=== PATIENT | female | born 1945 | race Hispanic/Latino ===

== ENCOUNTER 2018-04-20 19:40 | Inpatient (IN) | payer OTHER ==
[2018-04-20 21:08] LABS: Urine Blood TRACE (NEG); Urine Glucose NEGATIVE (NEG); Urine Protein NEGATIVE (NEG)
[2018-04-20 21:50] LABS: Absolute Lymphocytes (CBC) 2.2 K/uL (0.7-4.9); Absolute Monocytes 0.6 K/uL (0.1-1.3); Basophils % 0.5 % (0-1.3); Eosinophils % 0.4 % (0-4.4); Hematocrit 38.8 % (36.0-45.0); Lymphocytes % 24.4 % (15.3-44.8); MCH 29.3 pg (27.0-35.0); MCV 85.6 fL (80-100); MPV 9.8 fL (7.6-11.3); RBC Red Blood Cell Count 4.53 M/uL (3.86-4.86)
[2018-04-20 22:06] LABS: Albumin 3.9 g/dL (3.4-5.0); Bilirubin Direct 0.2 mg/dL (0-0.2); Bilirubin Total 0.6 mg/dL (0.2-1.0); Potassium 3.9 mmol/L (3.5-5.1); Protein, Total 8.2 g/dL (6.4-8.2)
--- NOTE | 2018-04-21 00:25 | ER ---
Nurse's Notes [facility] Name: Sara Goodwin Age: 72 yrs Sex: Female : 1945 Arrival Date: 04/20/2018 Time: 19:42 Bed 13 Private MD: Priti Adams Diagnosis: Hydronephrosis with renal and ureteral calculous obstruction Presentation: 04/20 19:47 Presenting complaint: Patient states: LLQ abdominal pain that radiates to back with aj nausea started today. Denies burning with urination. Transition of care: patient was not received from another setting of care. Onset of symptoms was April 20, 2018. Risk Assessment: Do you want to hurt yourself or someone else? Patient reports no desire to harm self or others. Initial Sepsis Screen: Does the patient meet any 2 criteria? No. Patient's initial sepsis screen is negative. Does the patient have a suspected source of infection? No. Patient's initial sepsis screen is negative. Care prior to arrival: None. 19:47 Method Of Arrival: Ambulatory 19:47 Acuity: PIYUSH 3 aj Triage Assessment: 19:48 General: Appears in no apparent distress. comfortable, Behavior is calm, cooperative, aj appropriate for age. Pain: Complains of pain in anterior aspect of left lateral abdomen and left lower quadrant. Neuro: Level of Consciousness is awake, alert, obeys commands, Oriented to person, place, time, situation, Appropriate for age. Respiratory: Airway is patent Respiratory effort is even, unlabored, Respiratory pattern is regular, symmetrical. GI: Abdomen is non-distended, obese, Reports lower abdominal pain, nausea. Derm: Skin is intact, is healthy with good turgor, Skin is pink, warm \T\ dry. normal. Historical: - Allergies: 19:48 No Known Allergies; aj - PMHx: 19:48 Hypothyroidism; Hypertension; Cancer, Breast; aj - PSHx: 19:48 Mastectomy, Right; ; aj - Immunization history:: Adult Immunizations up to date. - Social history:: Smoking status: Patient/guardian denies using tobacco. - Ebola Screening: : Patient negative for fever greater than or equal to 101.5 degrees Fahrenheit, and additional compatible Ebola Virus Disease symptoms Patient denies exposure to infectious person Patient denies travel to an Ebola-affected area in the 21 days before illness onset No symptoms or risks identified at this time. Screenin:30 Abuse screen: Denies threats or abuse. Denies injuries from another. Nutritional cc3 screening: No deficits noted. Tuberculosis screening: No symptoms or risk factors identified. Fall Risk Ambulatory Aid- None/Bed Rest/Nurse Assist (0 pts). Gait- Normal/Bed Rest/Wheelchair (0 pts) Mental Status- Oriented to own ability (0 pts). Assessment: 20:30 General: see triage assessment. cc3 21:20 Reassessment: Patient appears in no apparent distress at this time. Patient and/or cc3 family updated on plan of care and expected duration. Pain level reassessed. Patient is alert, oriented x 3, equal unlabored respirations, skin warm/dry/pink. 22:45 Reassessment: Patient appears in no apparent distress at this time. Patient and/or cc3 family updated on plan of care and expected duration. Pain level reassessed. Patient is alert, oriented x 3, equal unlabored respirations, skin warm/dry/pink. Called CT scan department at extension [phone] and informed them that patient has a new IV cannula already and ready for the procedure. 23:43 Reassessment: Patient appears in no apparent distress at this time. Patient and/or cc3 family updated on plan of care and expected duration. Pain level reassessed. Patient is alert, oriented x 3, equal unlabored respirations, skin warm/dry/pink. Patient came back from CT scan department, waiting for the result. 04/21 00:25 Reassessment: Patient appears in no apparent distress at this time. Patient and/or cc3 family updated on plan of care and expected duration. Pain level reassessed. Patient is alert, oriented x 3, equal unlabored respirations, skin warm/dry/pink. Patient for admission, waiting for admission orders. 01:22 Reassessment: Patient appears in no apparent distress at this time. Patient and/or cc3 family updated on plan of care and expected duration. Pain level reassessed. Patient is alert, oriented x 3, equal unlabored respirations, skin warm/dry/pink. 01:46 Reassessment: Room available in [facility], called extension [phone] for report but as per Chana ariza the nurse who will receive will call me back. 01:50 Reassessment: Report handed over to RN Benedict Sears for continuity of care. cc3 02:00 Reassessment: Patient appears in no apparent distress at this time. Patient and/or cc3 family updated on plan of care and expected duration. Pain level reassessed. Patient is alert, oriented x 3, equal unlabored respirations, skin warm/dry/pink. Patient left ER for admission vitally stable by wheelchair escorted by technical assistance consultant Taoism. Vital Signs: 04/20 19:48 BP 159 / 75; Pulse 75; Resp 19; Temp 98.9; Pulse Ox 98% on R/A; Weight 73.94 kg; Height aj 5 ft. 0 in. (152.40 cm); 20:32 BP 146 / 89; Pulse 67; Resp 18 S; Pulse Ox 98% on R/A; cc3 21:15 BP 163 / 84; Pulse 72; Resp 18 S; Pulse Ox 98% on R/A; cc3 22:11 BP 161 / 78; Pulse 68; Resp 20 S; Pulse Ox 98% on R/A; cc3 23:04 BP 179 / 84; Pulse 68; Resp 19 S; Pulse Ox 98% on R/A; cc3 23:44 BP 156 / 89; Pulse 73; Resp 20 S; Pulse Ox 97% on R/A; cc3 04/21 00:23 BP 152 / 82; Pulse 71; Resp 18 S; Pulse Ox 98% on R/A; cc3 01:43 BP 155 / 75; Pulse 64; Resp 17 S; Pulse Ox 97% on R/A; cc3 04/20 19:48 Body Mass Index 31.83 (73.94 kg, 152.40 cm) aj ED Course: 04/20 19:42 Patient arrived in ED. am2 19:43 Priti Adams is Private Physician. am2 19:47 Triage completed. aj 19:48 Arm band placed on left wrist. Patient placed in waiting room, Patient notified of wait aj time. 20:28 Sujata Mcclelland is Primary Nurse. cc3 20:30 Patient has correct armband on for positive identification. Placed in gown. Bed in low cc3 position. Call light in reach. Side rails up X 1. groundwater monitoring technician on. Pulse ox on. NIBP on. 20:33 Joshua Huerta PA is PHCP. jmm 20:33 Dima Bailey MD is Attending Physician. jmm 21:35 Inserted saline lock: 22 gauge in left wrist, using aseptic technique. Blood collected. cc3 21:46 Radiology exam delayed due to lab results not completed at this time. (BUN/Creatinine). cw1 22:24 PHCP role handed off by Joshua Huerta PA snw 22:24 Leny Varghese FNP-C is PHCP. snw 22:30 IV discontinued, intact, bleeding controlled, No redness/swelling at site. Pressure cc3 dressing applied. 22:45 Inserted saline lock: 20 gauge in left antecubital area, using aseptic technique. cc3 inserted by technical assistance consultant Taoism. 23:[address] via wheelchair. kw1 23:29 CT Abd/Pelvis - W/Contrast In Process Unspecified. EDMS 23:31 CT completed. Patient tolerated procedure well. Patient moved back from CT. kw1 04/21 00:24 Lee Sinha MD is Hospitalizing Provider. snw 01:50 No provider procedures requiring assistance completed. Patient admitted, IV remains in cc3 place. Administered Medications: 00:30 Drug: fentaNYL (PF) 25 mcg Route: IVP; Site: left antecubital; cc3 01:00 Follow up: Response: No adverse reaction; Pain is decreased cc3 00:40 Drug: Rocephin 1 grams Route: IV; Rate: calculated rate; Site: left antecubital; cc3 01:00 Follow up: Response: No adverse reaction; IV Status: Completed infusion cc3 Outcome: 00:25 Decision to Hospitalize by Provider. snw 01:50 Admitted to Tele accompanied by tech, via wheelchair, room 401, with chart, Report cc3 called to MEÑO Sears 01:50 Condition: stable 01:50 Instructed on the need for admit, Demonstrated understanding of instructions. 02:03 Patient left the ED. cc3 Signatures: Dispatcher [employer] Yamini Beverly RN RN aj Therrien, Shelly, FNP-C REAL ESTATE AGENT/BROKER-CsnJoshua Valdes PA PA jmm Woodley, Crystal cw1 Yamini Mayorga am2 Mignon Lr kw1 Sujata Mcclelland cc3 Corrections: (The following items were deleted from the chart) 04/20 23:21 22:45 Inserted saline lock: 20 gauge in left antecubital area, using aseptic technique. cc3 inserted by MEÑO ariza
--- NOTE | 2018-04-21 00:25 | EDPHYS ---
Physician Documentation [facility] Name: Sara Goodwin Age: 72 yrs Sex: Female : 1945 Arrival Date: 04/20/2018 Time: 19:42 Bed 13 Private MD: Priti Adams ED Physician Dima Bailey HPI: 04/20 21:33 This 72 yrs old Female presents to ER via Ambulatory with complaints of Side jmm pain rad to back. 21:33 The patient presents with abdominal pain in the left lower quadrant. Onset: The jmm symptoms/episode began/occurred today. The symptoms do not radiate. Associated signs and symptoms: Pertinent negatives: nausea and vomiting, fever. This is a 72 year old female with a history of HTN, Hypothyroidism, Cancer that presents to the ED with left sided abdominal pain beginning earlier today. Patient denies fever, vomiting, diarrhea, dysuria. . Historical: - Allergies: 19:48 No Known Allergies; aj - PMHx: 19:48 Hypothyroidism; Hypertension; Cancer, Breast; aj - PSHx: 19:48 Mastectomy, Right; ; aj - Immunization history:: Adult Immunizations up to date. - Social history:: Smoking status: Patient/guardian denies using tobacco. - Ebola Screening: : Patient negative for fever greater than or equal to 101.5 degrees Fahrenheit, and additional compatible Ebola Virus Disease symptoms Patient denies exposure to infectious person Patient denies travel to an Ebola-affected area in the 21 days before illness onset No symptoms or risks identified at this time. ROS: 21:33 Constitutional: Negative for fever, chills, and weight loss, Cardiovascular: Negative jmm for chest pain, palpitations, and edema, Respiratory: Negative for shortness of breath, cough, wheezing, and pleuritic chest pain. 21:33 Abdomen/GI: Positive for abdominal pain. 21:33 All other systems are negative. Exam: 21:33 Head/Face: atraumatic. Eyes: EOMI, no conjunctival erythema appreciated ENT: Moist jmm Mucus Membranes Neck: Trachea midline, Supple Chest/axilla: Normal chest wall appearance and motion. Cardiovascular: Regular rate and rhythm. No edema appreciated Respiratory: Normal respirations, no respiratory distress appreciated 21:33 Constitutional: The patient appears in no acute distress, alert, awake. 21:33 Abdomen/GI: Inspection: abdomen appears normal, Bowel sounds: normal, Palpation: soft, mild abdominal tenderness, in the left lower quadrant. 21:33 Back: ROM is normal. 21:33 Musculoskeletal/extremity: ROM: intact in all extremities. 21:33 Skin: Appearance: Color: normal in color. 21:33 Neuro: Orientation: is normal, Mentation: is normal, Memory: is normal. 21:33 Psych: Behavior/mood is pleasant, cooperative. Vital Signs: 19:48 BP 159 / 75; Pulse 75; Resp 19; Temp 98.9; Pulse Ox 98% on R/A; Weight 73.94 kg; Height aj 5 ft. 0 in. (152.40 cm); 20:32 BP 146 / 89; Pulse 67; Resp 18 S; Pulse Ox 98% on R/A; cc3 21:15 BP 163 / 84; Pulse 72; Resp 18 S; Pulse Ox 98% on R/A; cc3 22:11 BP 161 / 78; Pulse 68; Resp 20 S; Pulse Ox 98% on R/A; cc3 23:04 BP 179 / 84; Pulse 68; Resp 19 S; Pulse Ox 98% on R/A; cc3 23:44 BP 156 / 89; Pulse 73; Resp 20 S; Pulse Ox 97% on R/A; cc3 04/21 00:23 BP 152 / 82; Pulse 71; Resp 18 S; Pulse Ox 98% on R/A; cc3 01:43 BP 155 / 75; Pulse 64; Resp 17 S; Pulse Ox 97% on R/A; cc3 04/20 19:48 Body Mass Index 31.83 (73.94 kg, 152.40 cm) aj MDM: 04/20 21:08 Patient medically screened. [facility] 21:50 Data reviewed: vital signs, nurses notes. [facility] 22:17 Transition of care: After a detail discussion of the patient's case, care is [facility] transferred to Leny Varghese [facility]. 04/20 20:58 Order name: Urine Dipstick--Ancillary (enter results); Complete Time: 21:08 ms 04/20 21:09 Order name: Basic Metabolic Panel; Complete Time: 22:15 [facility] 04/20 21:09 Order name: CBC with Diff; Complete Time: 22:15 [facility] 04/20 21:09 Order name: Creatinine for Radiology; Complete Time: 22:15 [facility] 04/20 21:09 Order name: Hepatic Function; Complete Time: 22:15 [facility] 04/20 21:09 Order name: Lipase; Complete Time: 22:15 [facility] 04/20 21:09 Order name: IV Saline Lock; Complete Time: 21:44 [facility] 04/20 21:09 Order name: Labs collected and sent; Complete Time: 21:44 [facility] 04/20 21:09 Order name: CT Abd/Pelvis - W/Contrast [facility] Administered Medications: 04/21 00:30 Drug: fentaNYL (PF) 25 mcg Route: IVP; Site: left antecubital; cc3 01:00 Follow up: Response: No adverse reaction; Pain is decreased cc3 00:40 Drug: Rocephin 1 grams Route: IV; Rate: calculated rate; Site: left antecubital; cc3 01:00 Follow up: Response: No adverse reaction; IV Status: Completed infusion cc3 Disposition: 06:48 Co-signature as Attending Physician, Dima Bailey MD I agree with the assessment and tw4 plan of care. Disposition: 04/21/18 00:25 Hospitalization ordered by Lee Sinha for Inpatient Admission. Preliminary diagnosis is Hydronephrosis with renal and ureteral calculous obstruction. - Bed requested for Telemetry/MedSurg (Inpatient). - Status is Inpatient Admission. cc3 - Condition is Stable. - Problem is new. - Symptoms are unchanged. UTI on Admission? No Signatures: Dispatcher [employer] EDFL Mel Caraballo RN RN mw Myers, Amanda, RN RN aj Therrien, Shelly, FNP-C CUSTODY ASSISTANT-Joshua Norton PA PA jmm Wadley, Terrence, MD MD tw4 Sujata Mcclelland cc3 Corrections: (The following items were deleted from the chart) 00:35 00:25 Hospitalization Ordered by Lee Sinha MD for Inpatient Admission. Preliminary diagnosis is Hydronephrosis with renal and ureteral calculous obstruction. Bed requested for Telemetry/MedSurg (Inpatient). Status is Inpatient Admission. Condition is Stable. Problem is new. Symptoms are unchanged. UTI on Admission? No. snw 02:03 00:35 04/21/2018 00:25 Hospitalization Ordered by Lee Sinha MD for Inpatient cc3 Admission. Preliminary diagnosis is Hydronephrosis with renal and ureteral calculous obstruction. Bed requested for Telemetry/MedSurg (Inpatient). Status is Inpatient Admission. Condition is Stable. Problem is new. Symptoms are unchanged. UTI on Admission? No. mw
[2018-04-21] MEDS ORDERED: FENTANYL CITR 100 MCG/2 ML ONE (00:36)
[2018-04-21] MEDS ORDERED: NA CHLORIDE 0.9% 50 ML IV ONE (00:37)
[2018-04-21] MEDS ORDERED: CEFTRIAXONE 1000 MG/VIAL ONE (00:37)
[2018-04-21] MEDS ORDERED: HYDROMORPHONE HCL 1 MG/ML INJ IV PRN (01:20)
[2018-04-21] MEDS ORDERED: ACETAMINOPHEN 500 MG TAB PO PRN (01:20)
[2018-04-21] MEDS ORDERED: ONDANSETRON 4 MG/2 ML VIAL IV PRN (01:20)
[2018-04-21] MEDS: NA CHLORIDE 0.9% 1,000 ML IV SCH ×2 (02:17→16:12)
[2018-04-21 02:31] VITALS: BMI 30.1
[2018-04-21 05:46] LABS: Absolute Lymphocytes (CBC) 2.5 K/uL (0.7-4.9); Absolute Monocytes 0.5 K/uL (0.1-1.3); Absolute Neutrophil 6.9 K/uL (1.8-8.0); Basophils % 0.4 % (0-1.3); Eosinophils % 0.2 % (0-4.4); Hematocrit 36.1 % (36.0-45.0); Lymphocytes % 24.8 % (15.3-44.8); MCH 29.7 pg (27.0-35.0); MCV 84.3 fL (80-100); MPV 10.3 fL (7.6-11.3); Monocytes % 5.4 % (3.3-12.3); RBC Red Blood Cell Count 4.28 M/uL (3.86-4.86)
[2018-04-21 05:49] LABS: Protime INR 1.1
[2018-04-21 06:02] LABS: Potassium 3.7 mmol/L (3.5-5.1)
[2018-04-21 06:03] LABS: Albumin 3.6 g/dL (3.4-5.0); Bilirubin Total 0.6 mg/dL (0.2-1.0); Magnesium 2.2 mg/dL (1.8-2.4); Phosphorus 2.9 mg/dL (2.5-4.9); Protein, Total 7.7 g/dL (6.4-8.2)
--- NOTE | 2018-04-21 06:56 | P.HP ---
Certification for Inpatient Patient admitted to: Inpatient With expected LOS: >2 Midnights Patient will require the following post-hospital care: None Practitioner: I am a practitioner with admitting privileges, knowledge of patient current condition, hospital course, and medical plan of care. Services: Services provided to patient in accordance with Admission requirements found in Title 42 Section 412.3 of the Code of Federal Regulations Patient History Date of Service: 04/21/18 Reason for admission: Flank tenderness and hydronephrosis History of Present Illness: Patient is a 72-year-old female who presents to the emergency room with flank tenderness. In the emergency room her workup revealed nephrolithiasis with hydronephrosis. Patient has and obstructive uropathy. Will Consult urology for further EP evaluation. Clinically patient has been doing well but has very few medical problems throughout her life. She states she only has hypertension. She does not have any cardiac disease. She denies having chest pain or shortness of breath. She does have nausea and vomiting which is started whenever her abdominal symptoms started. She will be admitted to the hospital for further workup by Urology. Allergies No Known Allergies Allergy (Verified 04/21/18 02:38) Home Medications: Amlodipine [Norvasc*] 2.5 mg PO DAILYPRN PRN 04/21/18 Cholecalciferol (Vitamin D3) [Vitamin D3] 50,000 unit PO SEECOM 04/21/18 Latanoprost/Pf [Latanoprost 0.005% Eye Drop] 1 drop EACH EYE BEDTIME 04/21/18 Levothyroxine [Synthroid*] 0.075 mg PO DAILY 04/21/18 cloNIDine HCl [Clonidine HCl] 0.1 mg PO BID 04/21/18 - Past Medical/Surgical History Has patient received pneumonia vaccine in the past: No Diabetic: No -: HTN -: Breast cancer -: hypothyroidism -: right mastectomy -: -: cataract - Family History Mother Medical History: Cancer Brother Medical History: Hypertension, Diabetes - Social History Smoking Status: Never smoker Alcohol use: No CD- Drugs: No Caffeine use: Yes Place of Residence: Home Review of Systems 10-point ROS is otherwise unremarkable Physical Examination - Vital Signs Temperature: 98.4 F Blood Pressure: 169/79 Pulse: 62 Respirations: 20 Pulse Ox (%): 98 - Physical Exam General: Alert, In no apparent distress, Oriented x3 HEENT: Atraumatic, PERRLA, Mucous membr. moist/pink, EOMI, Sclerae nonicteric Neck: Supple, 2+ carotid pulse no bruit, No LAD, Without JVD or thyroid abnormality Respiratory: Clear to auscultation bilaterally, Normal air movement Cardiovascular: Regular rate/rhythm, Normal S1 S2, No murmurs Gastrointestinal: Normal bowel sounds, Soft and benign, Non-distended, No tenderness Musculoskeletal: No clubbing, No swelling, No tenderness Integumentary: No rashes Neurological: Normal gait, Normal speech, Normal strength at 5/5 x4 extr, Normal tone, Sensation intact, Cranial nerves 3-12 intact, Normal affect Lymphatics: No axilla or inguinal lymphadenopathy - Studies Laboratory Data (last 24 hrs) 04/20/18 21:35: Creatinine 1.00 04/20/18 21:35: WBC 8.9, Hgb 13.3, Hct 38.8, Plt Count 162 04/20/18 21:35: Sodium 137, Potassium 3.9, BUN 17, Creatinine 1.00, Glucose 112 H, Total Bilirubin 0.6, AST 23, ALT 26, Alkaline Phosphatase 92, Lipase 169 Assessment & Plan - Problems (Diagnosis) (1) Obstructive uropathy Current Visit: Yes Status: Acute (2) Nephrolithiasis Current Visit: Yes Status: Acute (3) Hydronephrosis Current Visit: Yes Status: Acute - Plan Plan: 1. IV hydration 2. Pain control 3. Urology consultation 4. NPO after midnight 5. Strict input and output 6. Antibiotic regimen 7. GI and DVT prophylaxis Discharge Plan: Home Plan to discharge in: 48 Hours - Advance Directives Does patient have a Living Will: No Does patient have a Durable POA for Healthcare: No - Code Status/Comfort Care Code Status Assessed: Yes Code Status: Full Code Critical Care: No Time Spent Managing PTS Care (In Minutes): 50
[2018-04-21] MEDS ORDERED: KCL 20 MEQ/100 mL IVPB 20 MEQ/100 ML BAG IV SCH (07:00)
[2018-04-21] MEDS ORDERED: INFLUENZA VACCINE (for 3y+) 0.5 ML DOSE IMVAC ONE (08:00)
[2018-04-21] MEDS: CEFTRIAXONE/SWI 1gm 1 GM/10 ML SYR IV SCH (08:31)
[2018-04-21] MEDS ORDERED: CEFTRIAXONE 1 GM/NS 50 ML 1 GM/50 ML BAG IV SCH (09:00)
--- NOTE | 2018-04-21 09:02 | RAD REPORT ---
EXAM DESCRIPTION: CTAbdomen Pelvis W Contrast - 04/21/2018 6:24 am CLINICAL HISTORY: Abdominal pain. IV ONLY, left sided abdominal pain COMPARISON: No comparisons TECHNIQUE: Biphasic CT imaging of the abdomen and pelvis was performed with 100 ml non-ionic IV cont rast. All CT scans are performed using dose optimization technique as appropriate and may include automated exposure control or mA/KV adjustment according to patient size. FINDINGS: The lung bases are clear.Evidence prior right mastectomy noted. Mild diffuse fatty liver is present. 6 mm calculus (700 HU) is present at the left UVJ resulting in m oderate left hydronephrosis. No right-sided hydronephrosis. Small right renal cyst is present. The sp perico, pancreas and adrenal glands are normal. No bowel obstruction, free air, free fluid or abscess. Scattered diverticulosis is present without di verticulitis. The appendix is not identified as a discrete structure, however, no secondary findings of appendicitis are identified. No evidence of significant lymphadenopathy. No suspicious bony findings. IMPRESSION: 6 mm stone (700 HU) at the left UVJ results in moderate left hydronephrosis. Fatty liver.
[2018-04-21] MEDS: AMLODIPINE 2.5 MG TAB PO SCH (09:49)
[2018-04-21] MEDS: LEVOTHYROXINE SOD 0.075 MG TAB PO SCH (09:49)
[2018-04-21] MEDS: cloNIDine HCl 0.1 MG TAB PO SCH ×2 (09:50→21:00)
[2018-04-22] MEDS: NA CHLORIDE 0.9% 1,000 ML IV SCH ×2 (00:41→08:36)
[2018-04-22] MEDS: LEVOTHYROXINE SOD 0.075 MG TAB PO SCH (06:00)
[2018-04-22] MEDS ORDERED: POTASSIUM 25 MEQ EFFERV TAB PO ONE (07:13)
[2018-04-22] MEDS: AMLODIPINE 2.5 MG TAB PO SCH (08:37)
[2018-04-22] MEDS: CEFTRIAXONE/SWI 1gm 1 GM/10 ML SYR IV SCH (08:37)
[2018-04-22] MEDS: cloNIDine HCl 0.1 MG TAB PO SCH (08:37)
--- NOTE | 2018-04-22 08:57 | CON ---
History Of Present Illness: This is a pleasant 71-year-old lady who was in good state of health until 1 day ago, developed sudden left flank pain radiating down to the left lower quadrant. She came to the emergency room where workup with a CT scan revealed a 6 mm stone at the left UVJ with hydroureteronephrosis. The patient is admitted for pain control and urological evaluation. This is her first stone. She never had kidney stones before. Allergies: NO KNOWN DRUG ALLERGIES. Home Medications: _, vitamin D3, _, levothyroxine, and clonidine. Past Medical And Surgical History: Diabetes, hypertension, breast cancer, hypothyroidism, right mastectomy, , cataract surgery. Family History: Mother had cancer. Father had hypertension and diabetes. Social History: Never smoked. No alcohol use. No drug use. Does use caffeine. Resides at home. Review of Systems: Ten-point review of systems otherwise unremarkable. Physical Examination: Vital Signs: Shows temperature 97.9, pulse 56, respirations 16, BP 160/90, sats 97% on room air. General: She is alert, in no acute distress, oriented x3. HEENT: Atraumatic, normocephalic. Neck: Supple. Respiratory: Clear. Cardiovascular: S1-S2. Gastrointestinal: Soft. Musculoskeletal: No clubbing, no swelling. Skin: No rashes. Neurologic: Alert and oriented x3. Lymphatics: No lymphadenopathy. Laboratory Data: Lab studies show urine shows pH 7.0, blood trace, nitrite negative, leukocyte esterase trace. Chemistry shows sodium 139, potassium 3.7, chloride 111, carbon dioxide 21, BUN 15, creatinine 0.9, GFR 61, glucose 119, calcium 8.2. Coagulation is normal. CBC; white count normal 9.9, H and H 12.7 and 36, platelet 158. CT scan as reported above stones 700 Hounsfield units. I will check a KUB. Assessment: Left UVJ stone 6 mm, Hounsfield units, 700. Plan: Plan is to do a KUB in a.m., continue to strain her urine. Will make her n.p.o. after midnight. She was Given all the general information, alternatives, and risks, she wishes to proceed with shock wave lithotripsy, possible stent and document KUB. She knows all the risks and benefits and wishes to proceed. PB/MODL Voice ID: [id number] Report ID: [id number] JAMAR
--- NOTE | 2018-04-22 09:16 | RAD REPORT ---
EXAM DESCRIPTION: RAD - Abdomen 1 View (KUB) - 04/22/2018 7:56 am CLINICAL HISTORY: ICD N 20.0 FINDINGS: The bowel gas pattern is unremarkable. 6 millimeter calculus within the left pelvis represents a left UPJ stone.
[2018-04-22] MEDS ORDERED: FENTANYL CITR 100 MCG/2 ML ONE (12:06)
[2018-04-22] MEDS ORDERED: LIDOCAINE 1% MPF 5 ML VIAL ONE (12:06)
[2018-04-22] MEDS ORDERED: PROPOFOL 200 MG/20 ML VIAL IV ONE (12:06)
[2018-04-22] MEDS ORDERED: MIDAZOLAM HCL 2 MG/2 ML INJ ONE (12:06)
[2018-04-22] MEDS ORDERED: ONDANSETRON HCL 40 MG/20 ML VIAL ONE (13:08)
[2018-04-22] MEDS ORDERED: KETOROLAC 30 MG/ML INJ ONE (13:08)
[2018-04-22 13:52] VITALS: O2SAT 98
--- NOTE | 2018-04-22 15:56 | P.SSS ---
Patient History Date of Service: 04/22/18 Reason for admission: Flank tenderness and hydronephrosis History of Present Illness: Patient is a 72-year-old female who presents to the emergency room with flank tenderness. In the emergency room her workup revealed nephrolithiasis with hydronephrosis. Patient has and obstructive uropathy. Will Consult urology for further EP evaluation. Clinically patient has been doing well but has very few medical problems throughout her life. She states she only has hypertension. She does not have any cardiac disease. She denies having chest pain or shortness of breath. She does have nausea and vomiting which is started whenever her abdominal symptoms started. She will be admitted to the hospital for further workup by Urology. Allergies No Known Allergies Allergy (Verified 04/21/18 02:38) Home Medications: Amlodipine [Norvasc*] 2.5 mg PO DAILY 04/21/18 Cholecalciferol (Vitamin D3) [Vitamin D3] 50,000 unit PO SEECOM 04/21/18 Latanoprost/Pf [Latanoprost 0.005% Eye Drop] 1 drop EACH EYE BEDTIME 04/21/18 Levothyroxine [Synthroid*] 0.075 mg PO DAILY 04/21/18 cloNIDine HCl [Clonidine HCl] 0.1 mg PO BID 04/21/18 - Past Medical/Surgical History Has patient received pneumonia vaccine in the past: No Diabetic: No -: HTN -: Breast cancer -: hypothyroidism -: right mastectomy -: -: cataract - Family History Mother -: Cancer Brother -: Hypertension, Diabetes - Social History Smoking Status: Never smoker Alcohol use: No CD- Drugs: No Caffeine use: Yes Place of Residence: Home Review of Systems As noted above Physical Examination - Vital Signs Temperature: 96.6 F Blood Pressure: 168/63 Pulse: 46 Respirations: 18 Pulse Ox (%): 100 - Physical Exam General: Alert, In no apparent distress HEENT: Atraumatic, PERRLA, Mucous membr. moist/pink, EOMI, Sclerae nonicteric Neck: Supple, 2+ carotid pulse no bruit, No LAD, Without JVD or thyroid abnormality Respiratory: Clear to auscultation bilaterally, Normal air movement Cardiovascular: Regular rate/rhythm, Normal S1 S2 Gastrointestinal: Normal bowel sounds, No tenderness Musculoskeletal: No tenderness Integumentary: No rashes Neurological: Normal gait, Normal speech, Normal strength at 5/5 x4 extr, Normal tone, Normal affect Treatment Summary: Patient was admitted for flank pain, was found to have hydronephrosis with ureter stone. She was given IV hydration, her pain was controlled by IV pain medications. Urology was consulted. She underwent a lithotripsy procedure with Dr. Hernandez. She tolerated surgery well. At the time of discharge, patient was hemodynamically stable, tolerating oral diet, and was denying any pain. She was urinating normally. No antibiotics needed on discharge. She was instructed to follow up with her primary care physician in 1 week. And she was instructed to follow up with urology in 2 weeks. - Disposition Condition: GOOD Consultations: UrologyDr. Hernandez Patient Discharge Instructions: Well with the primary care physician in 1 week. Please follow up with urologyDr. Hernandez in 2 weeks Diet: Low sodium Activity: Ad pillo Time Spent Managing Pts Care (In Minutes): 55
[2018-04-22 16:54] VITALS: BP 162/68; TEMP 97.3
== END 2018-04-22 17:06 | disposition home or self-care (01) | DRG 692 ==
LOC: ER 19:40 → ERHOLD 04-21 00:27 → 4TH 04-21 01:55
PROVIDERS: ADMIT Hospitalist; ATTEND Hospitalist
PROC: 0TF7XZZ Fragmentation in Left Ureter, External Approach (ICD-10-PCS; principal; 2018-04-22 12:15)
DX: N13.2 Hydronephrosis with renal and ureteral calculous obstruction (principal); I10 Essential (primary) hypertension; E03.9 Hypothyroidism, unspecified; Z85.3 Personal history of malignant neoplasm of breast
CPT/HCPCS: 36415; 50590; 74018; 74177; 80048; 80053; 80076; 81003; 82962; 83690; 83735; 84100; 85025; 85610; 85730; 96365; 96375; 99285; J0696; J2250; J2405; J3010; J7030; Q9967

== ENCOUNTER 2023-02-22 10:41 | Day surgery (SDC) | payer OTHER ==
--- NOTE | 2023-02-21 16:31 | RAD REPORT ---
EXAM DESCRIPTION: RAD - Chest Pa And Lat (2 Views) - 02/21/2023 3:43 pm CLINICAL HISTORY: Pre op pending cholecystectomy. Hypertension COMPARISON: CHEST PA AND LAT 2 VIEW dated 07/01/2014; CHEST PA AND LAT 2 VIEW dated 12/11/2012 TECHNIQUE: PA and lateral views of the chest were obtained. FINDINGS: The lungs are clear. Mild hyperinflation may relate to COPD. Mediastinal surgical clips ag ain seen. Heart size is normal and central vasculature is within normal limits. No pleural effusion o r pneumothorax seen. No acute bony finding noted. IMPRESSION: No acute cardiopulmonary process.
[2023-02-22] MEDS ORDERED: Ringers Lactate 1,000 ML IV ONE (11:13)
[2023-02-22] MEDS ORDERED: CEFOXITIN SODIUM 1 GM/VIAL ONE (11:13)
[2023-02-22] MEDS ORDERED: SUCCINYLCHOLINE 20 MG/ML (10 ML) IV ONE (11:53)
[2023-02-22] MEDS ORDERED: LIDOCAINE 2% MPF 5 ML VIAL ONE (11:56)
[2023-02-22] MEDS ORDERED: propofoL 200 MG/20 ML VIAL IV ONE (11:56)
[2023-02-22] MEDS ORDERED: ROCURONIUM 50 MG/5 ML VIAL IV ONE (11:56)
[2023-02-22] MEDS ORDERED: ONDANSETRON 4 MG/2 ML VIAL ONE (11:56)
[2023-02-22] MEDS ORDERED: dexAMETHasone 4 MG/ML VIAL ONE (11:56)
[2023-02-22] MEDS ORDERED: NEOSTIGMINE 1 MG/ML -10 ML VIAL ONE (11:57)
[2023-02-22] MEDS ORDERED: GLYCOPYRROLATE 0.2 MG/ML SYR ONE (11:57)
[2023-02-22] MEDS ORDERED: FENTANYL CITR 100 MCG/2 ML ONE ×2 (12:31→13:38)
[2023-02-22] MEDS ORDERED: LABETALOL 20 MG/4ML SYRINGE IV ONE (13:00)
--- NOTE | 2023-02-22 13:22 | P.BOP ---
Preoperative diagnosis: acute cholecystitis, symptomatic cholelithiasis Postoperative diagnosis: same Primary procedure: Laparoscopic cholecystectomy Sheep Sorter: GURPREET EDMONDSON (SENIOR AUDITOR) Estimated blood loss: <10cc Specimen: gb Findings: as above, inflammed edematous gallbladder wall Anesthesia: General Complications: None Drain(s): TEQUILA drain Transferred to: Recovery Room Condition: Good
[2023-02-22] MEDS ORDERED: KETOROLAC 30 MG/ML INJ ONE (13:38)
[2023-02-22 13:42] VITALS: O2SAT 96
[2023-02-22 14:24] VITALS: BP 162/55; TEMP 97.2
--- NOTE | 2023-02-22 15:23 | EKG ---
Test Date: 2023-02-21 Test Time: 15:18:22 Wheelchair Van Driver: MECCA MEASUREMENT RESULTS: Intervals: Rate: 55 ID: [id number] QRSD: 76 QT: 460 QTc: 440 [place]: P: 28 ID: [id number] QRS: 23 T: 30 INTERPRETIVE STATEMENTS: Sinus bradycardia Otherwise normal ECG No previous ECG available for comparison Electronically Signed On 02-22-23 15:21:14 CDT by Jimy Gilbert
--- NOTE | 2023-02-22 18:04 | DS ---
Date of Discharge: 02/22/2023 Diagnoses: Symptomatic cholelithiasis, acute cholecystitis. Procedure: Laparoscopic cholecystectomy. Disposition: Home. Activity: As tolerated. No heavy lifting. Plan: Follow up in my office in 1 week. Call for appointment at [phone]. Condition is stable. TEQUILA drain care was explained to the family. We will see the patient in a week from now. HARJINDER Voice ID: [id number] Report ID: [id number]
--- NOTE | 2023-02-22 18:22 | OP ---
Date of Procedure: 02/22/2023 Surgeon: Isrrael Chris MD Preoperative Diagnoses: Symptomatic cholelithiasis, acute cholecystitis. Postoperative Diagnoses: Symptomatic cholelithiasis, acute cholecystitis. Procedure: Laparoscopic cholecystectomy. Estimated Blood Loss: Less than 10 cc. Findings: Erythematous gallbladder wall as above. Complications: None. Indication: This is the case of a female, who comes to us with above diagnoses. Recently diagnosed with acute cholecystitis, started on p.o. antibiotics, still having discomfort. She is trying to mod livan her diet. The benefits, alternatives, and risks of laparoscopic possible open cholecystectomy fu lly explained, which include, but not limited to infection, bleeding, damage to adjacent structures, anesthesia complication, choledocholithiasis, bile leak, pancreatitis, WI, and even . She also understands this may not relieve any symptoms. She might need more than one surgical intervention. She understood, signed a consent. Procedure In Detail: The patient was brought to the operating room, placed in supine position. Anes thesia was done without complication. Abdominal area was prepped and draped in the usual sterile fas hion. Marcaine 0.5% was injected for local anesthetic followed by sharp incision of the skin in the infraumbilical region. The incision was carried down to fascia, which was opened under direct vision . Peritoneum was encountered, opened under direct vision. Vicryl #1 placed inside the fascia. Antonio on trocar was carefully introduced and pneumoperitoneum was obtained. I placed 3 more trocars, 5 mm each one of them, 1 in the epigastric area and 2 in the right upper quadrant using the same technique , which was consisted of local anesthetic, sharp incision of the skin, and introduction of the trocar s under direct vision. This allowed me to put a grasper on the fundus of the gallbladder, another gr asper in the infundibulum retracting the gallbladder in the inferolateral fashion, exposing the trian gle of Calot, and obtaining critical view. Cystic duct and cystic artery were clearly isolated, free d circumferentially and a connection between those and the gallbladder were clearly identified. I pr oceeded to ligate those by using at least 3 clips proximal, 1 clip distal, ligation in the middle. S yusef was done with the cystic artery. No bile leak, no bleeding. The same ligation with 3 clips prox imal, 1 clip distal was done with the cystic artery and the cystic duct. After that, the gallbladder was removed from the liver using Bovie cauterizer and removed from abdominal cavity using EndoCatch through the umbilical incision. I have to mention we have to decompress gallbladder due to the diste ntion and inflammation in that area. So at the end, the gallbladder was removed in EndoCatch through umbilical incision. We inspected the area once again. No bile leak, no bleeding. Due to the infla mmation, I left a TEQUILA drain exiting to 1 of the trocar sites and sewing that with 3-0 nylon. After th at, we proceeded to remove the trocars under direct vision. Deflated the pneumoperitoneum. Closed t he fascia with #1 Vicryl. Irrigated subcutaneous tissue, closed that with 3-0 chromic and skin with iliana. Sponge count, instrument counts correct. The patient tolerated the procedure well. The pa tieru was sent to recovery in stable condition. KYLEE/NOÉ Voice ID: [id number] Report ID: [id number]
== END 2023-02-22 14:44 | disposition home or self-care (01) ==
LOC: OR 10:41
PROVIDERS: ATTEND Surgery
PROC: 0FT44ZZ Resection of Gallbladder, Percutaneous Endoscopic Approach (ICD-10-PCS; principal; 2023-02-22 12:30)
DX: K80.10 Calculus of gallbladder with chronic cholecystitis without obstruction (principal)
CPT/HCPCS: 47562; 93005; 36415; 88304; 83690; 71046; J2704; J1100; J2710; J2001; J3010 ×2; J0694; J2405; J7120

== ENCOUNTER 2023-04-12 12:08 | Emergency (ER) | payer OTHER ==
[2023-04-12 12:54] LABS: Absolute Lymphocytes (CBC) 2.7 K/uL (0.7-4.9); Hematocrit 37.2 % (36.0-45.0); Lymphocytes % 37.8 % (15.3-44.8); MCV 85.2 fL (80-100); MPV 9.4 fL (7.6-11.3); Platelets 169 thou/uL (152-406); RBC Red Blood Cell Count 4.36 M/uL (3.86-4.86)
[2023-04-12] MEDS ORDERED: MORPHINE 4 MG/ML SYR ONE (13:04)
[2023-04-12] MEDS ORDERED: ONDANSETRON 4 MG/2 ML VIAL ONE (13:04)
[2023-04-12] MEDS ORDERED: NA CHLORIDE 0.9% 1,000 ML ONE (13:04)
[2023-04-12 13:11] LABS: Specific Gravity 1.005 (1.005-1.030); Urine Bacteria None Seen /HPF (<20); Urine Bilirubin NEGATIVE (Negative); Urine Blood Negative (Negative); Urine Clarity Clear (Clear); Urine Color Colorless (Yellow); Urine Glucose NEGATIVE (Negative); Urine Protein NEGATIVE (Negative); Urine RBC <5 /HPF (None Seen); Urine Urobilinogen Normal (Normal); Urine pH 6.5 (5.0-7.0)
[2023-04-12 13:12] LABS: Albumin 3.4 g/dL (3.4-5.0); Bilirubin Total 0.5 mg/dL (0.2-1.0); Potassium 3.8 mEq/L (3.5-5.1); Protein, Total 7.9 g/dL (6.4-8.2)
--- NOTE | 2023-04-12 13:32 | RAD REPORT ---
EXAM DESCRIPTION: CT - Stone Protocol - 04/12/2023 1:02 pm CLINICAL HISTORY: FLANK PAIN COMPARISON: Abdomen Pelvis W Contrast dated 04/20/2018 TECHNIQUE: Thin cut axial CT imaging of the abdomen and pelvis was performed without IV contrast. Mu ltiplanar reformats were generated and reviewed. All CT scans are performed using dose optimization technique as appropriate and may include automated exposure control or mA/KV adjustment according to patient size. FINDINGS: No suspicious findings in the lung bases. Stable 5 millimeter left lower lobe rounded nodu le, likely benign. Calcified subpleural right lower lobe 5 millimeter granuloma is also stable. The liver, spleen, and pancreas show no suspicious findings. Gallbladder was surgically removed Symmetric renal contour, without suspicious parenchymal findings within limits of noncontrast techniq ue. No evidence of hydroureteronephrosis. Punctate left renal hilum/caliceal radiodensities not excee ding 3 millimeter, suggestive of small calculi. No dilated bowel loops or bowel wall thickening. No free air, free fluid or inflammatory stranding. N o hernia, mass or bulky lymphadenopathy. The urinary bladder is suboptimally distended limiting evalu ation, without significant finding. Dominant left ovarian cyst/follicle measuring 3.3 cm. No suspicious bony findings. IMPRESSION: No acute intra-abdominal process. Tiny left renal nonobstructing calculi up to 3 millimeter. Other incidental findings as above.
--- NOTE | 2023-04-12 13:39 | ER ---
Nurse's Notes [facility] Name: Sara Goodwin Age: 77 yrs Sex: Female : 1945 Arrival Date: 04/12/2023 Time: 12:08 Bed 13 Private MD: Diagnosis: Unspecified renal colic Presentation: 04/12 12:16 Chief complaint: Patient states: "I feel like I have a kidney stone. My left flank mb9 hurts really bad. But I don't have any burning when I pee". Coronavirus screen: Vaccine status: Patient reports being unvaccinated. Ebola Screen: No symptoms or risks identified at this time. Initial Sepsis Screen: Does the patient meet any 2 criteria? No. Patient's initial sepsis screen is negative. Does the patient have a suspected source of infection? No. Patient's initial sepsis screen is negative. Risk Assessment: Do you want to hurt yourself or someone else? Patient reports no desire to harm self or others. Onset of symptoms was April 12, 2023. 12:16 Method Of Arrival: Ambulatory mb9 12:16 Acuity: PIYUSH 3 mb9 Triage Assessment: 12:18 General: Appears uncomfortable, Behavior is calm, cooperative. Pain: Complains of pain mb9 in back Pain radiates to left flank. Neuro: Rodriguez Agitation-Sedation Scale (RASS): 0 - Alert and Calm Level of Consciousness is awake, alert, obeys commands, Oriented to person, place, time, situation, Appropriate for age. Cardiovascular: Patient's skin is warm and dry. Respiratory: Airway is patent Respiratory effort is even, unlabored, Respiratory pattern is regular, symmetrical. GI: Reports nausea. : Denies burning with urination. Derm: Skin is pink, warm \\T\\ dry. Musculoskeletal: Range of motion: intact in all extremities. Historical: - Allergies: 12:17 No Known Allergies; mb9 - PMHx: 12:17 Cancer; Hypertension; Hypothyroidism; Cancer; mb9 - PSHx: 12:17 Cholecystectomy; mb9 - Immunization history:: Adult Immunizations up to date. - Social history:: Smoking status: Patient denies any tobacco usage or history of. Screenin:27 [facility] ED Fall Risk Assessment (Adult) History of falling in the last 3 months, me1 including since admission No falls in past 3 months (0 pts) Confusion or Disorientation No (0 pts) Intoxicated or Sedated No (0 pts) Impaired Gait No (0 pts) Mobility Assist Device Used No (0 pt) Altered Elimination No (0 pt) Score/Fall Risk Level 0 - 2 = Low Risk. Abuse screen: Denies threats or abuse. Nutritional screening: No deficits noted. Tuberculosis screening: No symptoms or risk factors identified. Assessment: 12:27 General: Appears uncomfortable, well groomed, well developed, well nourished, Behavior me1 is calm, cooperative, appropriate for age. Pain: Complains of pain in left flank Pain does not radiate. Pain currently is 8 out of 10 on a pain scale. Quality of pain is described as sharp, stabbing, Pain began suddenly, 1 day ago. Is continuous. Neuro: Level of Consciousness is awake, alert, obeys commands, Oriented to person, place, time, situation, Appropriate for age. Cardiovascular: Capillary refill < 3 seconds Patient's skin is warm and dry. Respiratory: Airway is patent Respiratory effort is even, unlabored, Respiratory pattern is regular, symmetrical. : Reports pain in left flank(s), since yesterday. 15:17 General: Appears in no apparent distress. Behavior is calm, cooperative. Neuro: Level kd3 of Consciousness is awake, alert, obeys commands, Oriented to person, place, time, situation. Respiratory: Airway is patent Trachea midline Respiratory effort is even, unlabored, Respiratory pattern is regular, symmetrical. Vital Signs: 12:16 BP 189 / 64; Pulse 58; Resp 18; Temp 97.5(O); Pulse Ox 100% ; Weight 76.2 kg; Height 5 mb9 ft. 0 in. ; Pain 8/10; 12:30 BP 148 / 63; Pulse 53; Resp 18; Pulse Ox 100% on R/A; me1 13:15 BP 148 / 60; Pulse 54; Resp 17; Pulse Ox 99% on R/A; me1 15:18 BP 150 / 61; Pulse 72; Resp 16; Pulse Ox 99% on R/A; kd3 12:16 Body Mass Index 32.81 (76.20 kg, 152.4 cm) mb9 12:16 Pain Scale: Adult mb9 ED Course: 12:12 Patient arrived in ED. ts1 12:16 Jana Johnson FNP [facility] 12:16 Gee Gibbs MD is Attending Physician. 7 12:16 Arm band placed on. 9 12:17 Triage completed. 9 12:22 Valarie Gaitan, RN is Primary Nurse. me1 12:27 Patient has correct armband on for positive identification. Bed in low position. Call va1 light in reach. Side rails up X 1. Provided Education on: POC. Verbalized understanding.. 12:27 No provider procedures requiring assistance completed. me1 12:47 Inserted saline lock: 22 gauge in left antecubital area, using aseptic technique. me1 12:47 CBC with Diff Sent. me1 12:47 CMP Sent. me1 12:47 Lipase Sent. me1 13:01 Urinalysis W/Microscopic Sent. me1 13:04 CT Stone Protocol In Process Unspecified. [facility] 15:18 IV discontinued, intact, bleeding controlled, No redness/swelling at site. Pressure kd3 dressing applied. Administered Medications: 13:24 Drug: NS 0.9% IV 1000 ml IV at 1 bolus Per protocol; 1000 mL bolus Route: IV; Rate: 1 me1 bolus; Site: left antecubital; 13:24 Drug: Ondansetron IVP 4 mg IVP once; over 2 minutes Route: IVP; Site: left antecubital; me1 13:24 Drug: morphine IVP or IV 4 mg IVP once over 4 mins Route: IVP; Infused Over: 4 mins; me1 Site: left antecubital; Medication: 12:27 VIS not applicable for this client. me1 Outcome: 13:39 Discharge ordered by . 7 15:18 Discharged to home ambulatory, 3 15:18 Condition: stable 15:18 Discharge instructions given to patient, family, Instructed on discharge instructions, follow up and referral plans. medication usage, Demonstrated understanding of instructions, follow-up care, medications, Prescriptions given X 1, 15:19 Patient left the ED. kd3 Signatures: Dispatcher [employer] Krista Joshua, RN RN kd3 Jana Johnson FNP FURNACE HELPER [facility] Alia Blair RN RN mb9 Rochelle Bhatti PAS PAS ts1 Valarie Gaitan, MEÑO RN va1
--- NOTE | 2023-04-12 13:39 | EDPHYS ---
Physician Documentation [facility] Name: Sara Goodwin Age: 77 yrs Sex: Female : 1945 Arrival Date: 04/12/2023 Time: 12:08 Bed 13 Private MD: ED Physician Gee Gibbs HPI: 04/12 12:17 This 77 yrs old Female presents to ER via Ambulatory with complaints of Back jh7 Pain, Side pain. 12:17 The patient presents with pain that is acute, with no known mechanism of injury. The jh7 symptoms are located in the left low back. Onset: The symptoms/episode began/occurred 2 day(s) ago. 77-year-old female presents with left flank pain and nausea for the past 2 days. She reports a history of renal stones. History of cholecystectomy. Denies fever, vomiting, chest pain, or any other symptoms at this time.. Historical: - Allergies: 12:17 No Known Allergies; mb9 - PMHx: 12:17 Cancer; Hypertension; Hypothyroidism; Cancer; mb9 - PSHx: 12:17 Cholecystectomy; mb9 - Immunization history:: Adult Immunizations up to date. - Social history:: Smoking status: Patient denies any tobacco usage or history of. ROS: 12:17 Constitutional: Negative for fever, chills, and weight loss, jh7 12:17 ENT: Negative for injury, pain, and discharge, Cardiovascular: Negative for chest pain, palpitations, and edema, Respiratory: Negative for shortness of breath, cough, wheezing, and pleuritic chest pain, MS/Extremity: Negative for injury and deformity, Skin: Negative for injury, rash, and discoloration, Neuro: Negative for headache, weakness, numbness, tingling, and seizure, 12:17 Abdomen/GI: Positive for nausea, Negative for abdominal pain, vomiting, diarrhea, constipation, 12:17 Back: Positive for flank pain, on the left, 12:17 : Positive for flank pain, Negative for urinary symptoms, 12:17 All other systems are negative, Exam: 12:17 Constitutional: This is a well developed, well nourished patient who is awake, alert, jh7 and in no acute distress. Head/Face: Normocephalic, atraumatic. Cardiovascular: Regular rate and rhythm with a normal S1 and S2. No gallops, murmurs, or rubs. Normal PMI, no JVD. No pulse deficits. Respiratory: Lungs have equal breath sounds bilaterally, clear to auscultation and percussion. No rales, rhonchi or wheezes noted. No increased work of breathing, no retractions or nasal flaring. Abdomen/GI: Soft, non-tender, with normal bowel sounds. No distension or tympany. No guarding or rebound. No evidence of tenderness throughout. Skin: Warm, dry with normal turgor. Normal color with no rashes, no lesions, and no evidence of cellulitis. MS/ Extremity: Pulses equal, no cyanosis. Neurovascular intact. Full, normal range of motion. Neuro: Awake and alert, GCS 15, oriented to person, place, time, and situation. Normal gait. 12:17 Back: ROM is normal, CVA tenderness, that is mild, is noted on the left, 12:17 : CVA tenderness, on the left, Vital Signs: 12:16 BP 189 / 64; Pulse 58; Resp 18; Temp 97.5(O); Pulse Ox 100% ; Weight 76.2 kg; Height 5 mb9 ft. 0 in. ; Pain 8/10; 12:30 BP 148 / 63; Pulse 53; Resp 18; Pulse Ox 100% on R/A; me1 13:15 BP 148 / 60; Pulse 54; Resp 17; Pulse Ox 99% on R/A; me1 15:18 BP 150 / 61; Pulse 72; Resp 16; Pulse Ox 99% on R/A; kd3 12:16 Body Mass Index 32.81 (76.20 kg, 152.4 cm) mb9 12:16 Pain Scale: Adult mb9 MDM: 12:16 Patient medically screened. [facility] 13:35 Differential diagnosis: arthritis, chronic back pain, Renal Infarction sprain, [facility] Ureterolithiasis. Data reviewed: vital signs, nurses notes, lab test result(s), radiologic studies, CT scan. I considered the following discharge prescriptions or medication management in the emergency department Medications were administered in the Emergency Department. See MAR. Care significantly affected by the following chronic conditions: Hypertension. Counseling: I had a detailed discussion with the patient and/or guardian regarding the historical points, exam findings, and any diagnostic results supporting the discharge/admit diagnosis, the need for outpatient follow up, a urologist, to return to the emergency department if symptoms worsen or persist or if there are any questions or concerns that arise at home. Response to treatment: the patient's symptoms have markedly improved after treatment. 13:49 Special discussion: Patient reports that she was given muscle relaxers by her PCP and [facility] still has plenty at home. Advised her to not take tramadol and muscle relaxers together due to the increased risk of sedation.. 04/12 12:24 Order name: CBC with Diff; Complete Time: 13:13 [facility] 04/12 12:24 Order name: CMP; Complete Time: 13:13 [facility] 04/12 12:24 Order name: Lipase; Complete Time: 13:13 [facility] 04/12 12:24 Order name: Urinalysis W/Microscopic; Complete Time: 13:13 [facility] 04/12 12:24 Order name: CT Stone Protocol; Complete Time: 13:33 [facility] 04/12 12:24 Order name: IV Saline Lock; Complete Time: 12:47 [facility] 04/12 12:24 Order name: Labs collected and sent; Complete Time: 12:47 [facility] Administered Medications: 13:24 Drug: NS 0.9% IV 1000 ml IV at 1 bolus Per protocol; 1000 mL bolus Route: IV; Rate: 1 me1 bolus; Site: left antecubital; 13:24 Drug: Ondansetron IVP 4 mg IVP once; over 2 minutes Route: IVP; Site: left antecubital; me1 13:24 Drug: morphine IVP or IV 4 mg IVP once over 4 mins Route: IVP; Infused Over: 4 mins; me1 Site: left antecubital; Disposition: 20:09 Co-signature as Attending Physician, Gee Gibbs MD I reviewed the patient's care rt provided by the Advanced Practice Provider and agree with the diagnosis and treatment plan. Disposition Summary: 04/12/23 13:39 Discharge Ordered Notes: Location: Home [facility] Problem: new [facility] Symptoms: have improved [facility] Condition: Stable [facility] Diagnosis - Unspecified renal colic [facility] Followup: [facility] - With: Private Physician - When: 2 - 3 days - Reason: Recheck today's complaints Discharge Instructions: - Discharge Summary Sheet [facility] - Kidney Stones [facility] - Renal Colic [facility] Forms: - Medication Reconciliation Form [facility] - Thank You Letter [facility] - Prescription Opioid Use [facility] - Patient Portal Instructions [facility] - Leadership Thank You Letter [facility] Prescriptions: - Tramadol 50 mg Oral Tablet - take 1 tablet ORAL route every 8 hours as needed; 12 tablet; Refills: 0, jh7 Product Selection Permitted Signatures: Dispatcher [employer] Jana Jang, BUTCHER SCULLION BUTCHER SCULLION 7 Alia Blair RN RN mb9 Gee Gibbs MD MD rt Valarie Gaitan RN RN me1
[2023-04-12 15:51] VITALS: TEMP 97.5
[2023-04-12 16:13] VITALS: BP 150/61; O2SAT 99
== END 2023-04-12 15:19 | disposition home or self-care (01) ==
LOC: ER 12:08
DX: N23 Unspecified renal colic (principal); Z87.442 Personal history of urinary calculi; I10 Essential (primary) hypertension
CPT/HCPCS: 85025; 81001; 36415; 83690; 80053; 76377; 74176; 96375; 96374; 99284; J2405; J7030